=== PATIENT | female | born 1975 | race Caucasian/White ===

== ENCOUNTER 2023-05-14 11:50 | Emergency (ER) | payer MEDICAID ==
[~2023-05-14] VITALS: Ht 157.5 cm; Wt 61.0 kg
[2023-05-14 11:54] VITALS: O2SAT 99
[2023-05-14] MEDS: IBUPROFEN 600MG TABLET PO STA (12:17)
[2023-05-14] MEDS ORDERED: IBUP-2029 MT (12:51)
[2023-05-14 13:05] VITALS: BP 105/74; PULSE 89; RESP 18; TEMP 98.7
== END 2023-05-14 13:21 | disposition home or self-care (01) ==
LOC: ER 11:50
DX: M70.51 Other bursitis of knee, right knee (principal); Z98.890 Other specified postprocedural states; Y93.89 Activity, other specified
CPT/HCPCS: 73560; 81025; 99283

== ENCOUNTER 2023-05-22 17:13 | Emergency (ER) | payer MEDICAID ==
[~2023-05-22] VITALS: Ht 167.6 cm; Wt 68.0 kg
[~2023-05-22 17:13] MED LIST: IBUP-2029 MT
[2023-05-22 17:21] VITALS: O2SAT 98
[2023-05-22] MEDS: CEPHALEXIN 250MG CAPSULE PO ONE (18:34)
[2023-05-22 20:06] LABS: BASOPHILS % 0.6 % (0.0-2.0); HEMOGLOBIN. 14.4 g/dL (12.0-16.0); LYMPHOCYTES % 29.2 % (20.0-50.0); MEAN CORPUSCULAR HEMOGLOBIN 31.9 pg (28.0-32.0); MEAN CORPUSCULAR VOLUME 91.2 fL (81.0-99.0); MEAN PLATELET VOLUME 9.9 fl (7.4-10.4); MONOCYTES % 6.1 % (2.0-8.0); NEUTROPHILS % 63.1 % (40.0-76.0); PLATELET 300 x1000/uL (130-400); RED CELL DISTRIBUTION WIDTH 11.9 % (11.6-14.6); WHITE BLOOD COUNT 10.8 x1000/uL (4.5-11.0)
[2023-05-22 20:11] LABS: HCG SCREEN NEGATIVE
[2023-05-22 20:14] LABS: ALANINE AMINOTRANSFERASE 119 IU/L (10-49); ALBUMIN 4.5 g/dL (3.2-4.8); ASPARTATE AMINOTRANSFERASE 88 IU/L (<34); BILIRUBIN TOTAL 0.6 mg/dL (0.1-1.0); CALCIUM 9.5 mg/dL (8.7-10.4); CARBON DIOXIDE 29 mEq/L (21-32); CHLORIDE 100 mEq/L (98-107); CREATININE 0.7 mg/dL (0.6-1.0); GLUCOSE 282 mg/dL (70-105); POTASSIUM 4.1 mEq/L (3.5-5.1); PROTEIN TOTAL 9.5 g/dL (6.0-8.3); SODIUM 134 mEq/L (136-145); UREA NITROGEN BLOOD 14 mg/dL (9-23)
[2023-05-22] MEDS ORDERED: VANCOMYCIN 1G PREMIX 200 ML IV SCH (21:00)
[2023-05-22] MEDS: CEFTRIAXONE 1GM/50ML 50 ML IV NR (23:30)
[2023-05-22] MEDS: CEFTRIAXONE 1GM/50ML 50 ML IV ONE (23:30)
[2023-05-23] MEDS: VANCOMYCIN 1G PREMIX 200 ML IV NR (00:12)
[2023-05-23 01:29] VITALS: BP 106/69; PULSE 106; RESP 27; TEMP 99.4
== END 2023-05-23 01:37 | disposition short-term general hospital (02) ==
LOC: ER 17:13
DX: L02.415 Cutaneous abscess of right lower limb (principal); Z98.890 Other specified postprocedural states
CPT/HCPCS: 80053; 84703; 83605; 85025; 87040; 36415; 93971; 76881; 96365; 99285; 96368; J0696; J3370; Z7610